=== PATIENT | female | born 1960 | race Caucasian/White ===

== ENCOUNTER → 2019-07-28 | Outpatient (CLI) | payer OTHER ==
[~2019-07-28] MED LIST: COUM2.5T17 PO; HYDR-3713 PO; LYRI75CA PO; NAPR-885 PO; PERC5TAB12 PO; TIZA4CAP PO; TYLE325T5 PO
[2019-07-28 09:32] LABS: HEMATOCRIT 40.9 % (36.0-47.0); HEMOGLOBIN 13.3 g/dl (12.0-15.5); MEAN CORPUSCULAR HEMOGLOBIN 30.1 pg (27.0-33.0); MEAN CORPUSCULAR HGB CONC 32.5 g/dl (32.0-36.5); MEAN CORPUSCULAR VOLUME 92.5 fl (80.0-96.0); PLATELET COUNT, AUTOMATED 292 10^3/uL (150-450); RED BLOOD COUNT 4.42 10^6/uL (4.00-5.40); WHITE BLOOD COUNT 4.8 10^3/uL (4.0-10.0)
[2019-07-28 09:42] LABS: INR 1.05; PROTHROMBIN TIME 13.5 SECONDS (11.8-14.0)
--- NOTE | 2019-07-28 09:49 | REP ---
Chest x-ray: Two views. History: Preop. Right hip arthritis. Comparison chest x-ray: August 29, 2015. Findings: There is a moderate sized hiatal hernia behind the heart. The heart is not enlarged. The lungs are well inflated and clear. Pulmonary vasculature is not increased. The pleural angles are sharp. There are subcortical cysts versus erosions at the glenohumeral articulations bilaterally consistent with glenohumeral arthropathy. There are mild degenerative changes in the thoracic spine. No other bony abnormality is seen. Impression: Moderate sized hiatal hernia. Otherwise no active cardiopulmonary disease. Bilateral glenohumeral arthropathy. Electronically Signed by Neftaly Almendarez MD 07/28/2019 09:57 A
[2019-07-28 09:54] LABS: ALBUMIN 3.1 GM/DL (3.2-5.2); ALT/SGPT 14 U/L (12-78); BILIRUBIN,TOTAL 0.9 MG/DL (0.2-1.0); BLOOD UREA NITROGEN 13 MG/DL (7-18); CALCIUM LEVEL 8.7 MG/DL (8.5-10.1); CARBON DIOXIDE LEVEL 29 MEQ/L (21-32); CHLORIDE LEVEL 108 MEQ/L (98-107); CREATININE FOR GFR 0.72 MG/DL (0.55-1.30); ERYTHROCYTE SEDIMENTATION RATE 14 mm/hr (0-30); GLOMERULAR FILTRATION RATE > 60.0 (>51); GLUCOSE, FASTING 93 MG/DL (70-100); POTASSIUM SERUM 4.3 MEQ/L (3.5-5.1); SODIUM LEVEL 142 MEQ/L (136-145); TOTAL PROTEIN 6.6 GM/DL (6.4-8.2)
--- NOTE | 2019-07-28 12:13 | ECGEPIP ---
[facility] Test Date: 2019-07-28 Pat Name: OLE CAROLINA Department: Room: - Gender: Female Vice President [employer]: [facility] : 1960 Requested By: KENJI Laird Order Number: [id number] Reading MD: Shawna Jaimes Measurements Intervals [place] Rate: 64 P: 57 ID: 140 QRS: 2 QRSD: 86 T: 4 QT: 391 QTc: 404 Interpretive Statements SINUS RHYTHM LOW QRS VOLTAGE NEW IN PRECORDIAL LEADS, FORMERLY LIMB LEADS POSSIBLE ANTERIOR MYOCARDIAL INFARCTION, OF INDETERMINATE AGE ANTERIORLATERAL T WAVE ABN MORE EXTENSIVE C/W 08/29/15 Electronically Signed on 07-28-2019 12:13:25 EDT by Shawna Jaimes
== END ==
LOC: M LAB 08:47
PROVIDERS: ATTEND Orthopaedic Surgery Hand Surgery
DX: M16.11 Unilateral primary osteoarthritis, right hip (principal)

== ENCOUNTER 2019-08-10 07:30 | Inpatient (IN) | payer OTHER ==
--- NOTE | 2019-08-06 15:02 | HPE ---
DATE OF ADMISSION: 08/10/2019 CHIEF COMPLAINT: Right hip pain. HISTORY OF PRESENT ILLNESS: Alysha is a pleasant 59-year-old female with progressively worsening right hip pain and stiffness. She has failed to improve with conservative treatment. She has elected for surgery for her continued symptoms. She has pain with weightbearing activities and her activities of daily living. X-rays of her hip are notable for advanced osteoarthritis of the right hip joint. She has consented for a right total hip arthroplasty by Dr. Patrice Enrique. Medical optimization was performed by Ami Kauffman. ALLERGIES: No known drug allergies. CURRENT MEDICATIONS: - tizanidine 4 mg every 8 hours as needed - hydrocodone 5/325 up to two tablets a day PAST MEDICAL HISTORY: Includes arthritis. PAST SURGICAL HISTORY: Includes a left total hip arthroplasty and an appendectomy. 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 Does not smoke. Occasionally drinks alcohol. FAMILY HISTORY: Is noncontributory. REVIEW OF SYSTEMS: This patient denies chest pain, heart palpitations, cough, wheezing, difficulty breathing, and shortness of breath. She denies abdominal pain, nausea, vomiting, diarrhea, or constipation. She denies recent upper respiratory infection or urinary tract infection symptoms. She does complain of persistent pain in the right hip. PHYSICAL EXAMINATION: General: She is a well-nourished, well-developed, in no acute distress, alert female patient. She ambulates with a moderate limp favoring her right lower extremity. She is not using assistive devices. Vital signs: She is 64 inches tall, weighs 214 pounds, with a temperature of 97.6, blood pressure 125/79, respirations of 16, pulse of 63. Neck was supple without adenopathy or jugular venous distention. Lungs were clear to auscultation without rales or wheeze. Heart: Regular rate and rhythm. Abdomen: Bowel sounds were present. Extremities: Examination of the hip revealed intact skin. She had decreased internal and external rotation of the right hip secondary to pain and stiffness. The limb was neurovascularly intact. LABORATORY DATA: Chest x-ray showed no acute cardiopulmonary disease processes, moderate-sized hiatal hernia, and bilateral glenohumeral arthropathy. Electrocardiogram (EKG) showed sinus rhythm at 64 beats per minute. Protime 13.5, INR 1.05. Glucose 93, BUN 13, creatinine 0.72, sodium 142, potassium 4.3. Complete blood count (CBC) was within normal limits. Sedimentation rate was 14. IMPRESSION: Symptomatic osteoarthritis of the right hip joint. PLAN: Consented for a right total hip arthroplasty by Dr. Patrice Enrique.
[~2019-08-10] VITALS: Ht 171.4 cm; Wt 97.1 kg
[~2019-08-10 07:30] MED LIST changes: +LR 1,000 ML IV ONE; +QC A650T3 PO; +ceFAZolin SOD 2 GM in IV 1 EA IV ONE
[2019-08-10] MEDS ORDERED: LIDOCAINE 2% INJ 100 MG/5 ML SDV (FOR ANES.) As Ordered ONE (11:32)
[2019-08-10] MEDS ORDERED: MIDAZOLAM INJ 2 MG/2 ML VIAL (J2250) As Ordered ONE (11:32)
[2019-08-10] MEDS ORDERED: PROPOFOL 200 MG/20 ML VIAL As Ordered ONE (11:32)
[2019-08-10] MEDS ORDERED: fentaNYL 100 MCG/2 ML INJECTION (J3010) As Ordered ONE ×2 (11:32→14:02)
[2019-08-10] MEDS ORDERED: hydrALAZINE INJ 20 MG/ML VIAL As Ordered ONE (11:34)
[2019-08-10] MEDS ORDERED: TRANEXAMIC ACID 100 MG/ML 10ML VIAL As Ordered ONE ×2 (11:49→14:07)
[2019-08-10] MEDS ORDERED: PROPOFOL 500 MG/50 ML VIAL As Ordered ONE ×2 (12:54→15:46)
[2019-08-10] MEDS ORDERED: EPINEPHrine INJ 1 MG/ML 1ML AMP As Ordered ONE (14:07)
[2019-08-10] MEDS ORDERED: ceFAZolin 1GM INJ (J0690 PER 500MG) As Ordered ONE (14:07)
[2019-08-10] MEDS ORDERED: BUPIVACAINE LIPOSOME/PF 1.3% 20ML VIAL (13.3MG/ML)(EXPAREL)(C9290 PER1MG) As Ordered ONE ×2 (14:08→14:49)
[2019-08-10] MEDS ORDERED: BUPIVACAINE HCL 0.5% 30 ML VIAL As Ordered ONE (14:56)
[2019-08-10] MEDS ORDERED: PHENYLephrine HCL 500 MCG/5 ML (100MCG/ML) SYRINGE (J2370) As Ordered ONE (15:09)
[2019-08-10] MEDS ORDERED: PHENYLEPHRINE INJ 10MG/ML VIAL (J2370) As Ordered ONE (15:37)
[2019-08-10] MEDS ORDERED: dexameTHASONE 4 MG/ML 1ML VIAL (J1100) As Ordered ONE (16:10)
[2019-08-10] MEDS ORDERED: oxyCODONE 5MG TAB PO PRN ×2 (17:30)
[2019-08-10] MEDS ORDERED: ONDANSETRON 4MG/2ML VIAL (J2405) IV PRN (17:30)
[2019-08-10] MEDS ORDERED: fentaNYL 100 MCG/2 ML INJECTION (J3010) IV PRN (17:30)
[2019-08-10] MEDS ORDERED: MORPHINE 2 MG/ML 1ML VIAL (J2270) IV PRN (17:30)
[2019-08-10] MEDS ORDERED: ACETAMINOPHEN TAB 650MG DOSE (2X325MG) PO PRN (17:30)
[2019-08-10] MEDS ORDERED: NS 1,000 ML IV SCH (17:30)
[2019-08-10] MEDS ORDERED: ONDANSETRON 4MG/2ML VIAL (J2405) IM PRN (17:30)
[2019-08-10] MEDS ORDERED: LR 1,000 ML IV SCH (17:30)
[2019-08-10] MEDS ORDERED: FLEET ENEMA PR PRN (17:30)
--- NOTE | 2019-08-10 19:04 | REP ---
Clinical: Status post arthroplasty. Technique: Portable pelvis and AP and cross-table lateral views. Findings: The patient is status post right hip replacement with normal positioning and appearance to the femoral and acetabular components. Prior left hip replacement noted. Overlying postsurgical changes appreciated. Impression: Satisfactory right hip replacement radiographs. Electronically Signed by Jaren Riojas MD 08/10/2019 06:55 P
--- NOTE | 2019-08-10 19:06 | REP ---
Clinical: Status post hip replacement. Technique: Portable AP and cross-table lateral views of the mid to distal femur. Findings: There is evidence for right hip replacement with intramedullary judie noted in satisfactory position. No acute femur fracture identified on current imaging. Generalized age-related changes at the knee noted. Impression: Status post right hip replacement. Electronically Signed by Jaren Riojas MD 08/10/2019 06:57 P
[2019-08-10 19:15] LABS: INR 1.11
[2019-08-10] MEDS: oxyCODONE 5MG TAB PO PRN (21:34)
[2019-08-10 21:46] VITALS: BP 128/75
[2019-08-10] MEDS: ceFAZolin SOD 1 GM in D5W MINI-BAG PLUS 50 ML IV SCH (22:16)
[2019-08-11] MEDS: oxyCODONE 5MG TAB PO PRN ×3 (04:41→14:00)
[2019-08-11 05:47] VITALS: BP 101/64
[2019-08-11] MEDS: ceFAZolin SOD 1 GM in D5W MINI-BAG PLUS 50 ML IV SCH ×2 (06:36→14:11)
[2019-08-11 06:42] LABS: HEMATOCRIT 36.2 % (36.0-47.0); MEAN CORPUSCULAR HEMOGLOBIN 30.6 pg (27.0-33.0); MEAN CORPUSCULAR HGB CONC 33.1 g/dl (32.0-36.5); MEAN CORPUSCULAR VOLUME 92.3 fl (80.0-96.0); PLATELET COUNT, AUTOMATED 243 10^3/uL (150-450); RED BLOOD COUNT 3.92 10^6/uL (4.00-5.40)
[2019-08-11] MEDS ORDERED: XARE10TA PO (07:31)
[2019-08-11] MEDS ORDERED: OXYC-517 PO ×2 (07:31→07:36)
[2019-08-11] MEDS ORDERED: FLUBLOK(EGG FREE)(QUAD)INFLUENZA VACC 0.5ML SYRINGE (90682)18YRS&OLDER IM ONE (09:00)
[2019-08-11] MEDS ORDERED: MIRALAX *UNIT DOSE* 17GM PACKET PO SCH (09:00)
[2019-08-11] MEDS ORDERED: MOM 30ML SUSPENSION UDC PO SCH (09:00)
[2019-08-11 14:00] VITALS: BP 120/68
[2019-08-11] MEDS ORDERED: RIVAROXABAN 10 MG TAB (XARELTO) PO SCH (18:00)
--- NOTE | 2019-08-13 08:44 | RO ---
DATE OF PROCEDURE: 08/10/2019 PREOPERATIVE DIAGNOSIS: Right hip osteoarthritis. POSTOPERATIVE DIAGNOSIS: Right hip osteoarthritis. PROCEDURE: Right total hip arthroplasty and open reduction internal fixation of proximal femur. INDICATION: This is a pleasant female who has been suffering from chronic osteoarthritic pain in the right hip. She has already underwent a left total hip arthroplasty and responded well and wishes to proceed with the right. She understood the risks and benefits of surgery including but not limited to damage to surrounding structures, infection, dislocation and incomplete relief. The patient wishes to proceed. SURGEON: Patrice Enrique MD OVER SHORT AND DAMAGE CLERK: Abhijit Collado, who was instrumental during retraction of lane portions of the procedure. ANESTHESIA: Spinal. BLOOD LOSS: 200 mL. PREOPERATIVE ANTIBIOTICS: 2 grams of Ancef. OPERATIVE DESCRIPTION: The patient was brought back to the operating room in a supine position at which point she underwent spinal anesthesia. Once this was complete, we prepped and draped the right hip in the usual fashion, at which point, we had time out confirming site, side and surgery. Then, we made a longitudinal incision over the greater trochanter, sharply dissected through subcutaneous tissue, identified the IT band, at which point, we incised in line with the fibers of the IT band. We then encountered the greater trochanter . This was cleaned off to expose gluteus medius vastus lateralis at which point we incised the sheath of the vastus lateralis along with the gluteus medius to the level of the greater trochanter and then split in line with its fibers, doing a tenotomy of the gluteus minimus as well, lifting it up as a giant sheet, including the capsule. At which point, we identified the hip joint. We dislocated the hip joint anteriorly, placed blunt Homans around either side of the femoral neck and made our femoral neck cut approximately one cm above the lesser trochanter. Once this was complete, we placed our posterior, anterior and inferior retractors into the hip, isolating the acetabulum. We cleared off the labrum and the ligament teres and the fovea. At which point, we started reaming sequentially from 48 up to 55 at which point we had a good fit and having bleeding subchondral bone surrounding it at approximately 40 degrees abduction and 25 degrees anteversion. At which point we inserted a 56 cup. Due to the level fixation, it was felt we did not require screw fixation so we entered the center screw hole. At which point we used the posterior lip polyethylene and impacted it. Once it was well seated, we turned our attention to the femur. We delivered the femur out of the wound at which point after using our canal finder and lateralizer we sequentially broached up to a 6. We felt we had good fixation at this point and trialed a 1.5 neck and then a 5 mm neck. We were happy with the 5 mm neck. At which point we got the prosthesis, a 132 size 6. While inserting the hip prosthesis is when we fractured the calcar. We immediately stopped and removed the prosthesis. We identified the fracture where it did not appear to extend down to the lesser trochanter. At which point we placed two cerclage wires, reducing the fracture into place and providing adequate fixation around the metaphysis of the proximal femur. At which point we reinserted the femoral prosthesis. We felt we had adequate fixation at this point. There was a small gap in the fracture however it appeared to be secure and well fixed. At which point we took a 36 ceramic head and impacted it on. Prior to that, we trialed a 5 and had a difficult time reducing it, so we switched back down to a 1.5 neck and this reduced well and it was not tight and it was quite secure in all ranges of motion. Therefore, we used a 1.5, 36 ceramic head and impacted it on until it was secure and reduced the hip. At which point we ranged the hip. We were very happy with the range of motion. We then irrigated the wound thoroughly with a pulse Vac, injected Exparel mixture into the capsule and subcutaneous tissue. At which point we did a gluteus vastus and vastus repair along with portions of the inferior capsule using #1 Vicryl. Once this was repaired nicely, we repaired the IT band with a barbed suture and then we turned our attention to the deep subcutaneous tissue and superficial subcutaneous tissue with #2-0 Vicryl and rossana for the skin. A hip dressing was placed. The patient was woken up from her anesthesia and taken stably to the postanesthesia care unit (PACU). POSTOPERATIVE PLAN: The patient will be touch down weight bearing for approximately 6 weeks to the right hip in order to protect it the femur after cerclage wires being placed. She will skip antibiotics, work on pain control and mobilization and be discharged within 1-2 days from the hospital barring any complications. She will also be on standard protocol deep vein thrombosis (DVT) prophylaxis.
--- NOTE | 2019-08-17 08:51 | DSES ---
DATE OF ADMISSION: 08/10/2019 DATE OF DISCHARGE: 08/11/2019 HISTORY OF PRESENT ILLNESS: This is a pleasant, 59-year-old female with continuing symptomatic right hip osteoarthritis. She consented for a right total hip arthroplasty per Dr. Patrice Enrique. Her medical optimization per Ami Kauffman. X-rays were consistent with advanced osteoarthritis. OPERATION PERFORMED: Right total hip arthroplasty with open reduction, internal fixation of proximal femur. HOSPITAL COURSE: The patient uneventfully underwent right total hip arthroplasty and open reduction, internal fixation of proximal femur under spinal anesthesia. The patient tolerated the procedure well and was returned to recovery comfortable. Our hospital team felt the patient was ready for discharge on 08/11 10/18 with the following instructions. Weightbearing as tolerated with walker, diet as regular, and Percocet as needed - pain. Thromboembolic deterrent (THOMPSON) stockings times 30, anticoagulation per Dr. Enrique's post-op protocol. Optifoam dressing change in 4-7 days' time. Followup at orthopedic group 12-14 days for wound check, potential staple removal. The patient is encouraged to contact our office sooner with increased pain, numbness, tingling, bleeding/drainage, fever greater or any further concerns. CARLOS
== END 2019-08-11 16:20 | disposition home or self-care (01) | DRG 301 ==
LOC: M OR 10:31 → EDSTATUS 12:45 → M MS5PR 18:10
PROVIDERS: ADMIT Orthopaedic Surgery Hand Surgery; ATTEND Orthopaedic Surgery Hand Surgery
PROC: 0QS604Z Reposition Right Upper Femur with Internal Fixation Device, Open Approach (ICD-10-PCS; 2019-08-10)
PROC: 0SR904Z Replacement of Right Hip Joint with Ceramic on Polyethylene Synthetic Substitute, Open Approach (ICD-10-PCS; principal; 2019-08-10 12:45)
DX: M16.11 Unilateral primary osteoarthritis, right hip (principal); Z96.642 Presence of left artificial hip joint; Z79.899 Other long term (current) drug therapy; Z90.49 Acquired absence of other specified parts of digestive tract; M96.661 Fracture of femur following insertion of orthopedic implant, joint prosthesis, or bone plate, right leg